=== PATIENT | female | born 1970 | race Caucasian/White ===

== ENCOUNTER 2019-10-26 12:06 | Inpatient (IN) | payer BC ==
[~2019-10-26] VITALS: Ht 167.6 cm; Wt 63.3 kg
[2019-10-26] VITALS (8 sets, daily range): BP systolic 105–127; BP diastolic 62–81; PULSE 76–97; TEMP 37
[2019-10-26] MEDS ORDERED: PROAIR HFA0.09 MG/AC IH (15:20)
[2019-10-26] MEDS ORDERED: XANAX .25M0.25 MG/TA PO (15:21)
--- NOTE | 2019-10-26 16:04 | NUR ---
Patient arrived tansfer from [facility] via [facility]. Admitted to room 311. Upon arrival A/O x4. Attitude calm and pleasant. report severe 10/10 pain in right hip area with any movement. See flow sheet for fvs documented. Patient down to interventional radiology for aspiration of right hip effusion with Dr. Chávez. Allergies and home medications reviewed.
[2019-10-26 16:25] LABS: SYNOVIAL FL. MONONUCLEAR 2.1 % (0-75); SYNOVIAL FLUID RBC 8000 /mm3 (0-0); SYNOVIAL FLUID WBC 70032 /mm3 (200-600)
[2019-10-26 16:30] LABS: SYNOVIAL FLUID APPEARANCE CLOUDY; SYNOVIAL FLUID COLOR AMBER
[2019-10-26 17:07] LABS: BASO % 0.2 % (0.0-2.0); EOS % 0.3 % (0-4.0); GRAN # 7.4 (1.4-6.5); GRAN % 76.9 % (42.2-75.2); HEMATOCRIT 38.3 % (37.0-47.0); HEMOGLOBIN 13.3 g/dl (12.5-16.0); LYMPH # 1.1 (1.2-3.4); LYMPH % 11.7 % (20.0-51.0); MEAN CELL VOLUME 89 fl (80.0-100.0); MEAN CORPUSCULAR HEMOGLOBIN 31 pg (27.0-31.0); MEAN CORPUSCULAR HGB CONC 35 g/dl (33.0-37.0); MEAN PLATELET VOLUME 9.4 fl (7.4-10.4); MONO % 10.5 % (1.7-9.3); PLATELET COUNT 303 K/mm3 (130-400); RED BLOOD COUNT 4.29 M/mm3 (4.10-5.30); REDCELL DISTRIBUTION WIDTH-CV 13.1 % (11.5-14.5)
[2019-10-26 17:09] LABS: INR 1.1 (0.8-3.0); PROTHROMBIN TIME 11.9 SECONDS (9.7-12.8)
[2019-10-26 17:12] LABS: ALBUMIN 4.6 gm/dL (3.5-5.0); C-REACTIVE PROTEIN 5.7 mg/dL (0.0-0.9); CALCIUM 9.5 mg/dL (8.4-10.2); CREATININE, serum 0.6 (0.52-1.25); MAGNESIUM 2.2 mg/dL (1.6-2.3); PARTIAL THROMBOPLASTIN TIME 31.5 SECONDS (26.0-37.0); POTASSIUM 4.2 mmol/L (3.4-5.0); TOTAL PROTEIN 8.2 gm/dL (6.4-8.2)
[2019-10-26 17:36] LABS: ERYTHROCYTE SEDIMENTATION RATE 10 mm/hr (0-20)
--- NOTE | 2019-10-26 18:49 | NUR ---
Vancomycin Initial Dosing Pharmacy Note Ordering provider: Rafa Aiken MD Indication/duration: SEPTIC ARTHRITIS LABS: WBC 9.6, SCr 0.6, CrCl 88 Recommendation: VANCOMYCIN 15 MG/KG Maintenance dose: 1 gram every 8 hours Trough goal: 15-20 ug/mL. TROUGH 10/26 @ 1830
--- NOTE | 2019-10-26 19:36 | NUR ---
PT transported via bed to OR. Report received from PERCY Pham.
--- NOTE | 2019-10-26 19:44 | NUR ---
PATIENT TO OR @ 1920 FOR I&D OF RIGHT HIP. LEFT FLOOR IN BED ACCOMPANIED BY OR NURSE. A/OX4 WHEN LEAVING FLOOR. SEE EMAR FOR MEDICATIONS ADMINISTERED TO INCLUDE DILAUDID 0.5MG IV PUSH FOR PAIN. SIGNED CONSENT ON CHART. REPORT GIVEN TO OR NURSE AT BEDSIDE.
--- NOTE | 2019-10-26 21:25 | NUR ---
Received report from PERCY Estes OR.
--- NOTE | 2019-10-26 21:40 | NUR ---
Pt arrived to room 311 via bed with PERCY Estes.
--- NOTE | 2019-10-26 22:00 | NUR ---
Pt A/Ox4. States no pain at rest, pain with movement only but tolerable. Denies nausea at this time. Pt aware of PRN meds. LAC with fluids infusing, dressing CDI. x2 incision site to Rt hip w/o complications. Ice provided to place on site. SCD in place to BLE. Water provided. VSS. Afebrile. Needs attended too. call light within reach.
[2019-10-27] VITALS (8 sets, daily range): BP systolic 105–127; BP diastolic 59–76; PULSE 66–87; TEMP 97.8–98.7
--- NOTE | 2019-10-27 05:11 | NUR ---
Pt had no complaints of pain or nausea during the night. Site to rt hip without complications. Fluids infusing. Water provided. Needs met. Call light within reach.
--- NOTE | 2019-10-27 07:04 | NUR ---
Report given to PERCY Andrews.
--- NOTE | 2019-10-27 08:40 | NUR ---
Pt assessment completed and charted, medications administered per JUL. Pt is on room air, breathing is even and unlabored, pt denies SOB. Pt finished breakfast this morning, denies N/V. Radial and pedal pulses strong bilaterally. Pt denies any dizziness or pain at this time. Pt has been ambulating to bathroom independently. Awaiting PT to work with patient. Pt has two incisions to right hip, sites are CDI, covered w/ gauze and tegaderm. No further concerns expressed at this time. Call light within reach.
[2019-10-27 10:17] LABS: CREATININE, serum 0.62 (0.52-1.25); POTASSIUM 4.3 mmol/L (3.4-5.0)
--- NOTE | 2019-10-27 11:18 | NUR ---
SW met with the patient to complete initial intake. The patient lives in [place] with her and their 10 year old son. The patient has a walker and is independent with ADLs. The patient's PCP is Gaby Zelaya NP and patient receives medications from [facility] in [place] with no difficulties. The patient does not have advanced directives in the EMR and was not interested in DPOA-HC form. The patient plans to return home at discharge. There are no additional needs at this time.
--- NOTE | 2019-10-27 18:34 | NUR ---
Pt laying in bed, has worked with therapy multiple times throughout day. Denied need for pain medication this morning and afternoon, stated her lt hip was tender but didn't need medication at the time. Pt now laying in bed, a little upset, states she is in some pain and would like to take something. Pt provided with [place] PRN and fresh water. No further needs at this time.
--- NOTE | 2019-10-27 20:00 | NUR ---
At time of assessment, patient is watching TV in bed. She is alert and oriented, no pain or edema present, lungs clear, heart sounds normal/regular. No new concerns at this time. Will continue to monitor.
[2019-10-28 00:26] VITALS: BP 106/62; PULSE 85; TEMP 98.6
[2019-10-28 03:26] VITALS: BP 106/65; PULSE 76; TEMP 98.7
[2019-10-28 06:50] LABS: ALBUMIN 3.7 gm/dL (3.5-5.0); BILIRUBIN,TOTAL 0.5 mg/dL (0.0-1.0); CALCIUM 8.6 mg/dL (8.4-10.2); CREATININE, serum 0.54 (0.52-1.25); TOTAL PROTEIN 6.7 gm/dL (6.4-8.2)
[2019-10-28 07:06] LABS: BASO % 0.5 % (0.0-2.0); EOS # 0.1 (0.0-0.7); GRAN # 6.2 (1.4-6.5); GRAN % 72.1 % (42.2-75.2); LYMPH # 1.5 (1.2-3.4); LYMPH % 17.7 % (20.0-51.0); MEAN CELL VOLUME 93 fl (80.0-100.0); MEAN CORPUSCULAR HGB CONC 33 g/dl (33.0-37.0); MEAN PLATELET VOLUME 9.9 fl (7.4-10.4); MONO # 0.7 (0.1-0.6); MONO % 8.4 % (1.7-9.3); PLATELET COUNT 289 K/mm3 (130-400); REDCELL DISTRIBUTION WIDTH-CV 13.2 % (11.5-14.5)
[2019-10-28 07:11] LABS: HEMATOCRIT 34.3 % (37.0-47.0); HEMOGLOBIN 11.3 g/dl (12.5-16.0); MEAN CORPUSCULAR HEMOGLOBIN 31 pg (27.0-31.0)
[2019-10-28 08:15] VITALS: BP 118/79; PULSE 80; TEMP 97.7
--- NOTE | 2019-10-28 09:41 | NUR ---
Pt assessed and charted, pt is alert and oriented, roomair. Procedure site, right hip dressing looks dry and intact. Morning meds provided as per JUL, breakfast provided, tolerated well, no swallowing problems. I/V fluid is running without complications. No N/V/D, pain, numbness, tingling, SOB as per pt. No further needs at this time.
[2019-10-28 11:39] VITALS: BP 115/71; PULSE 85; TEMP 97.9
--- NOTE | 2019-10-28 12:25 | NUR ---
First visit from the template clerk. No needs right now.
[2019-10-28] MEDS ORDERED: ROCEPHIN 2GM VIAL21 IV (13:50)
--- NOTE | 2019-10-28 14:17 | NUR ---
Quotation Checker spoke with MER Soler who advised patient will discharge tomorrow and will need IV antibiotics. Karlene reports patient would like to set up appointments at [facility] in [place]. CIARA contacted RN at [facility] who advised they can provide IV antibiotics M- but patient would need to go to the hospital in [place] on Saturdays and Sundays. CIARA advised that patient would discharge with a PICC. CIARA faxed antibiotic order, facesheet, progress notes, and H&P to fax#[phone]. CIARA spoke with [facility] and appointment was made for 1000 on Friday as patient's first visit. CIARA met with patient who is agreeable to this plan although she is tearful as she wanted to discharge today. Patient will need IV Rocephin once daily for four weeks. CIARA collaborated with PERCY Camilo-CM. CIARA to continue to follow.
--- NOTE | 2019-10-28 16:15 | NUR ---
Pt requested pain meds, provided PRN pain meds as per JUL, I/V fluid discontinued. PICC line placed and X-ray done to confirmed. No other needs at this time.
[2019-10-28 16:44] VITALS: BP 114/50; PULSE 85; TEMP 98.3
[2019-10-28 18:22] LABS: PH 7 (5-8); SQUAMOUS EPITHELIAL None Seen /hpf; URINE APPEARANCE Clear; URINE BACTERIA None Seen /hpf; URINE BILIRUBIN Negative (NEGATIVE); URINE BLOOD 1+ (NEGATIVE); URINE COLOR Straw; URINE GLUCOSE Negative (NEGATIVE); URINE KETONE Negative (NEGATIVE); URINE LEUKOCYTE ESTERASE Negative (NEGATIVE); URINE NITRATE Negative (NEGATIVE); URINE PROTEIN(semi-quant) Negative (NEGATIVE); URINE RBC 0-2 /hpf; URINE UROBILINOGEN Negative (NEGATIVE)
--- NOTE | 2019-10-28 18:50 | NUR ---
Pt is resting, watching TV, no further needs at this time.
[2019-10-28 21:25] VITALS: BP 130/68; PULSE 88; TEMP 98
[2019-10-28 21:38] LABS: COLLECTION METHOD CLEAN CATCH
[2019-10-29 00:20] VITALS: BP 101/55; PULSE 74; TEMP 97.8
[2019-10-29 04:37] VITALS: BP 109/58; PULSE 89; TEMP 98.6
[2019-10-29 07:42] LABS: BASO # 0.1 (0.0-0.2); BASO % 0.6 % (0.0-2.0); EOS # 0.1 (0.0-0.7); EOS % 1.2 % (0-4.0); GRAN # 6.8 (1.4-6.5); GRAN % 69.8 % (42.2-75.2); HEMOGLOBIN 11.8 g/dl (12.5-16.0); LYMPH # 1.8 (1.2-3.4); LYMPH % 18.8 % (20.0-51.0); MEAN CELL VOLUME 93 fl (80.0-100.0); MEAN CORPUSCULAR HEMOGLOBIN 31 pg (27.0-31.0); MEAN CORPUSCULAR HGB CONC 33 g/dl (33.0-37.0); MEAN PLATELET VOLUME 9.9 fl (7.4-10.4); MONO # 0.9 (0.1-0.6); MONO % 9.3 % (1.7-9.3); PLATELET COUNT 305 K/mm3 (130-400); RED BLOOD COUNT 3.85 M/mm3 (4.10-5.30)
[2019-10-29 07:52] LABS: CALCIUM 9.5 mg/dL (8.4-10.2); CREATININE, serum 0.54 (0.52-1.25); POTASSIUM 4.1 mmol/L (3.4-5.0)
[2019-10-29 07:53] LABS: HEMATOCRIT 35.6 % (37.0-47.0)
[2019-10-29 08:11] VITALS: BP 106/55; PULSE 83; TEMP 98.3
--- NOTE | 2019-10-29 10:37 | NUR ---
CIARA attended clinical rounds with the team. The patient is to discharge home today, 10/28. The patient is to have IV antibiotics at [facility] and at [facility] on Friday and Friday. CIARA faxed discharge orders to . There are no additional needs at this time.
[2019-10-29] MEDS ORDERED: NORCO 325 MG-7.1 TAB PO (10:38)
--- NOTE | 2019-10-29 10:42 | NUR ---
Pt assessment completed and charted, roomair, alert and oriented. Breakfast provided tolerated well, Morning meds provided as per JUL. PICC line blood returned and flushed well. PICC site looks dry, intact and has no pain as per pt, PICC bandage is on place covering the lobes. No N/V/D, pain, numbness, tingling, SOB as per pt at this time. Pt right hip, procedure site looks dry, intact, no pain. Pt is to discharged today and go home with her PICC line. No further needs at this time.
[2019-10-29 12:45] VITALS: BP 108/56; PULSE 83; TEMP 98.4
--- NOTE | 2019-10-29 13:24 | NUR ---
Medication/rocephin was given through her PICC line as per JUL. Discharge instructions were provided, pt was accepting and verbalized understanding. Pt is having lunch, getting ready and waiting for her to come and pick her up.
--- NOTE | 2019-10-29 14:26 | NUR ---
came at around 1:45 and PERCY Estes and this nurse wheeled her out in Emergency dept, pt left with her husabnd.
== END 2019-10-29 13:50 | disposition home or self-care (01) | DRG 481 ==
LOC: MEDICAL 12:06
PROVIDERS: Orthopaedic Surgery; Physician Assistant; ADMIT Internal Medicine
PROC: 0SB94ZZ Excision of Right Hip Joint, Percutaneous Endoscopic Approach (ICD-10-PCS; principal; 2019-10-26 19:00)
DX: M00.851 Arthritis due to other bacteria, right hip (principal); E87.1 Hypo-osmolality and hyponatremia; F10.10 Alcohol abuse, uncomplicated; F41.9 Anxiety disorder, unspecified; F17.210 Nicotine dependence, cigarettes, uncomplicated; Z88.6 Allergy status to analgesic agent; Z88.2 Allergy status to sulfonamides
CPT/HCPCS: 99222-AI; 99231-AI; 99232-AI; 99239; A9284; C1751; C1892; J0171; J0690; J0692; J0696; J1100; J1170; J1885; J2405; J2704; J3010; J3370; J7030; J7042; J7050